=== PATIENT | female | born 1985 | race Caucasian/White ===

== ENCOUNTER 2017-05-06 14:04 | Emergency (ER) | payer BC ==
[2017-05-06 14:09] VITALS: BP 126/89
--- NOTE | 2017-05-06 14:55 | ED ---
Lower Extremity - HPI Summary HPI Summary: 32F presents with left saeed for two months. She denies any injury. She has had multiple vein surgeries on the leg and she is following up with vascular surgery in two weeks. She denies any numbness or tingling. She denies any previous fracture. She states pain is worst with continued ambulation. She is not on control. no family history of DVT. no chest pain or SOB. no recent travel or surgeries. - History of Current Complaint Chief Complaint: EDExtremityLower Stated Complaint: LT ANKLE PAIN-SENT FROM [facility] Time Seen by Provider: 05/06/17 14:16 Pain Intensity: 4 - Allergies/Home Medications Allergies/Adverse Reactions: Allergies Allergy/AdvReac Type Severity Reaction Status Date / Time Aspirin Allergy Unknown Verified 05/06/17 14:09 Reaction Details PMH/Surg Hx/FS Hx/Imm Hx Endocrine/Hematology History: Denies: Hx Anticoagulant Therapy Respiratory History: Denies: Hx Asthma - Surgical History Surgery Procedure, Year, and Place: ; cholecystectomy; vein stripping Infectious Disease History: No Infectious Disease History: Denies: History Other Infectious Disease, Traveled Outside the in Last 30 Days - Family History Known Family History: Negative: Blood Disorder - Social History Alcohol Use: Rare Substance Use Type: Reports: None Smoking Status (MU): Never Smoked Tobacco Review of Systems Negative: Fever Negative: Chest Pain Negative: Shortness Of Breath Positive: Myalgia - left ankle All Other Systems Reviewed And Are Negative: Yes Physical Exam Triage Information Reviewed: Yes Vital Signs On Initial Exam: Initial Vitals Temp Pulse Resp BP Pulse Ox 96.9 F 83 16 126/89 99 05/06/17 14:06 05/06/17 14:06 05/06/17 14:06 05/06/17 14:06 05/06/17 14:06 Vital Signs Reviewed: Yes Appearance: Positive: Well-Appearing Skin: Positive: Warm, Dry Head/Face: Positive: Normal Head/Face Inspection Eyes: Positive: Normal, EOMI, DERIAN, Conjunctiva Clear ENT: Positive: Normal ENT inspection, Pharynx normal, TMs normal Respiratory/Lung Sounds: Positive: Clear to Auscultation, Breath Sounds Present Cardiovascular: Positive: Normal, RRR Musculoskeletal: Positive: Strength/ROM Intact - left ankle, Other - good pulses , tender over left anterior saeed on medial aspect of saeed, capillary refill<2 secs,. Negative: Mena Sign Left Neurological: Positive: Sensory/Motor Intact Diagnostics - Vital Signs Vital Signs Temp Pulse Resp BP Pulse Ox 05/06/17 14:06 96.9 F 83 16 126/89 99 - Laboratory Lab Statement: Any lab studies that have been ordered have been reviewed, and results considered in the medical decision making process. - Ultrasound No standard instances Ultrasound Interpretation: No Acute Changes Ultrasound Interpretation Completed By: Radiologist Lower Extremity Course/Dx - Course Course Of Treatment: 32F presents with left saeed for two months. She denies any injury. She has had multiple vein surgeries on the leg and she is following up with vascular surgery in two weeks. She denies any numbness or tingling. She denies any previous fracture. She states pain is worst with continued ambulation. She is not on control. no family history of DVT. no chest pain or SOB. no recent travel or surgeries. no fevers or rash. on exam tender over left anterior medial saeed. neg mena. u/s normal. will have follow up with vascular surgery as scheduled may be PVD? patient understands and agrees with plan. - Diagnoses Differential Diagnosis/HQI/PQRI: Positive: DVT, Sprain, Strain Provider Diagnoses: Left ankle pain Discharge - Discharge Plan Condition: Good Disposition: HOME Referrals: Bety Guajardo NP [Primary Care Provider] - Additional Instructions: Follow up with vascular surgery as scheduled Follow up with primary if no improvement Take Tylenol or ibuprofen every 6 hours for pain Return to ED if develop any new or worsening symptoms
--- NOTE | 2017-05-06 15:20 | RAD ---
INDICATION: Pain and swelling. COMPARISON: None TECHNIQUE: Duplex interrogation of the left lowerextremity was performed. FINDINGS: Deep veins: The common femoral, great saphenous, profunda femoris, proximal, mid, and distal deep femoral, popliteal, posterior tibial, and peroneal veins are patent. There is normal compressibility, augmentation, and phasic flow. Superficial veins: There are no findings of superficial thrombophlebitis. Popliteal fossa:There is no evidence of a popliteal cyst. Soft tissues:There are no soft tissue abnormalities. IMPRESSION: Normal examination. No evidence of deep venous thrombosis
== END 2017-05-06 15:45 | disposition home or self-care (01) ==
LOC: ED 14:04
DX: M25.571 Pain in right ankle and joints of right foot (principal); M79.1 Myalgia
CPT/HCPCS: 99281

== ENCOUNTER 2019-06-02 12:55 | Emergency (ER) | payer BC ==
[2019-06-02 13:06] VITALS: BP 105/73
--- NOTE | 2019-06-02 13:39 | UC ---
Skin Complaint HPI - HPI Summary HPI Summary: Stung by a bee yesterday, with increased pain and swelling extending to the left ankle today. Entire foot is swollen. Took zyrtec, avoided benadryl due to sedation. No shortness of breath associated. - History of Current Complaint Chief Complaint: UCSkin Time Seen by Provider: 06/02/19 13:29 Stated Complaint: BEE STING TO FOOT Hx Obtained From: Patient Hx Last Menstrual Period: pcos Onset/Duration: Sudden Onset, Lasting Hours Skin Exposure Onset/Duration: Days Ago - 1 Timing: Constant Onset Severity: Mild Current Severity: Moderate Pain Intensity: 3 Location: Discrete - left foot Aggravating Factor(s): Nothing Alleviating Factor(s): Nothing Associated Signs & Symptoms: Positive: Tenderness, Red Streaks Related History: Insect Bite/Sting - Allergy/Home Medications Allergies/Adverse Reactions: Allergies Allergy/AdvReac Type Severity Reaction Status Date / Time aspirin Allergy Rash Verified 06/02/19 13:06 Home Medications: Home Medications Liraglutide [Victoza 3-Gatito] 1 % BLADDER DAILY 06/02/19 [History Confirmed ] Metformin HCl [Metformin HCl ER] 1 tab PO DAILY 06/02/19 [History Confirmed ] Oxybutynin TAB* [Ditropan TAB*] 1 tab PO DAILY 06/02/19 [History Confirmed 06/02] PMH/Surg Hx/FS Hx/Imm Hx Previously Healthy: Yes Endocrine History: Other - PCOS with insulin resistance. Other History Of: Negative For: Anticoagulant Therapy - Surgical History Surgical History: Yes Surgery Procedure, Year, and Place: ; cholecystectomy; vein stripping - Family History Known Family History: Positive: Cardiac Disease - father of heart disease age 56 - Social History Occupation: Employed Full-time Lives: With Family Alcohol Use: Rare Substance Use Type: None Smoking Status (MU): Never Smoked Tobacco - Immunization History Most Recent Influenza Vaccination: no Review of Systems All Other Systems Reviewed And Are Negative: Yes Constitutional: Positive: Negative Skin: Positive: Other - foot swelling and pain post sting. Eyes: Positive: Negative ENT: Positive: Negative Respiratory: Positive: Negative Cardiovascular: Positive: Negative Gastrointestinal: Positive: Negative Neurological: Positive: Negative Psychological: Positive: Negative Is Patient Immunocompromised?: No Physical Exam Triage Information Reviewed: Yes Appearance: Well-Appearing, Pain Distress Vital Signs: Initial Vital Signs Temp 98 F 06/02/19 13:03 Pulse 73 06/02/19 13:03 Resp 17 06/02/19 13:03 BP 105/73 06/02/19 13:03 Pulse Ox 100 06/02/19 13:03 ENT: Positive: Normal ENT inspection, Pharynx normal Respiratory: Positive: Lungs clear, Normal breath sounds, No respiratory distress Cardiovascular: Positive: RRR, No Murmur Musculoskeletal Exam: Normal Neurological Exam: Normal Skin Exam: Other - left foot with erythema extending from proximal toes to left ankle over entire foot surface, with warmth and swelling. Mild streaking medial malleolar area. Course/Dx - Course Course Of Treatment: oral prednisone and addition of cephalexin for suspected early cellulitis left foot. - Differential Diagnoses - Skin Complaint Differential Diagnoses: Allergic Reaction, Cellulitis, Local Allergic Reaction - Diagnoses Provider Diagnosis: Allergic reaction to bee sting, Cellulitis of left foot Discharge ED - Sign-Out/Discharge Documenting (check all that apply): Patient Departure All imaging exams completed and their final reports reviewed: No Studies - Discharge Plan Condition: Good Disposition: HOME Prescriptions: Cephalexin CAP* [Keflex 500 CAP*] 500 mg PO TID #15 cap predniSONE [Prednisone 20 MG TAB] 40 mg PO DAILY #10 tablet Patient Education Materials: Cellulitis (ED), Insect Bite or Sting (ED) Referrals: Bety Guajardo [facility] [Primary Care Provider] - Additional Instructions: Prednisone has been prescribed to decrease the swelling related to the sting. Take with food. side effects include increased energy, insomnia, stomach upset and irritability. Cephalexin has been prescribed because of likely early infection in the foot. Please take 3x daily for 5 days. - Billing Disposition and Condition Condition: GOOD Disposition: Home
== END 2019-06-02 14:00 | disposition home or self-care (01) ==
LOC: UCEAST 12:55
DX: L03.116 Cellulitis of left lower limb (principal); T63.441A Toxic effect of venom of bees, accidental (unintentional), initial encounter; E88.81 Metabolic syndrome and other insulin resistance; E28.2 Polycystic ovarian syndrome; Z88.8 Allergy status to other drugs, medicaments and biological substances; Z79.84 Long term (current) use of oral hypoglycemic drugs; Y92.9 Unspecified place or not applicable
CPT/HCPCS: 99212; G0463